=== PATIENT | female | born 2000 | race Caucasian/White ===

== ENCOUNTER 2023-07-10 09:33 | Outpatient (CLI) | payer OTHER, SELFPAY ==
--- NOTE | ~2023-07-10 | US_ITS ---
US thyroid INDICATION: Hypothyroidism. TECHNIQUE: Real-time sonographic images of the thyroid gland were obtained. COMPARISON: No prior studies for comparison. FINDINGS: The right thyroid lobe measures 5 x 1.7 x 1.7 cm. The left thyroid lobe measures 4.2 x 1.7 x 1.3 cm. There is diffusely heterogeneous echotexture and echogenicity throughout the thyroid gland . No discrete nodules identified. Normal vascular flow is present. IMPRESSION: 1. Enlarged heterogeneous thyroid gland without discrete mass, consistent with multinodular goiter. Reviewed, dictated and finalized at location A. OR LITIGATION PAR[place]GAL
== END 2023-07-10 09:34 | disposition home or self-care (01) ==
LOC: ANHIMG 09:34
PROVIDERS: Visit Provider Nurse Practitioner Family
DX: E03.9 Hypothyroidism, unspecified (principal); R76.8 Other specified abnormal immunological findings in serum
CPT/HCPCS: 76536

== ENCOUNTER 2024-02-11 00:46 | Emergency (ER) | payer OTHER, SELFPAY ==
--- NOTE | ~2024-02-11 | XR_ITS ---
EXAMINATION: XR chest 1V portable DATE: 02/11/2024 01:03 INDICATION: Chest tightness TECHNIQUE: frontal view of the chest was obtained. COMPARISON: None FINDINGS: The lungs are clear with no focal airspace opacities, pulmonary edema, pleural effusion or pneumothor ax. The cardiomediastinal silhouette is normal. Visualized bones and soft tissues are unremarkable. IMPRESSION: 1. Normal chest radiograph Reviewed, dictated and finalized at location A. IMPRESSION: 1. Normal chest radiograph
[2024-02-11 00:51] VITALS: BP 146/87; PULSE 98; RESP 15; TEMP 36.7; O2SAT 98
--- NOTE | 2024-02-11 00:51 | ECG_ITS ---
Test Date: 2024-02-11 00:58:59 Measurements Intervals [place] Rate: 76 P: 59 NC: 175 QRS: 24 QRSD: 71 T: 22 QT: 379 QTc: 426 Interpretive Statements SINUS RHYTHM DELAYED PRECORDIAL R/S TRANSITION BASELINE ARTIFACT- I, II, III, AVR, AVL, AVF BORDERLINE ECG No previous ECG available for comparison Electronically Signed On 02-11-2024 06:49:47 CDT by Kenneth Cage D.O.
--- NOTE | 2024-02-11 00:56 | ED.GENADULT ---
HPI - General Adult General Chief complaint: Unspecified Stated complaint: chest tightness/shaky feeling Time Seen by Provider: 02/11/24 00:50 Source: patient Mode of arrival: ambulatory Limitations: no limitations History of Present Illness HPI narrative: This is a 23-year-old female who presents to the ED with chief complaint of chest tightness, dizziness and shakiness beginning a work is see. 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 States that while moving boxes tonight she started to have the chest tightness. Reports also feeling shaky so she was given a soda by her print shop manager in case it was low blood sugar. She has history of hypothyroidism and takes levothyroxine but no recent changes to her medications. Also taking Adderall for ADHD but has not had any issues with this previously. Denies fevers, chills, cough, congestion, leg swelling, palpitations, shortness of breath, recent illness, history of blood clot, recent immobilization, estrogen use. Related Data Allergies Allergy/AdvReac Type Severity Reaction Status Date / Time No Known Allergies Allergy Verified 02/11/24 00:47 Review of Systems Review of Systems: All systems as dictated in HPI Exam Narrative: GENERAL: Well-appearing, well-nourished, and in no acute distress. HEAD: Normocephalic, atraumatic. EYES: PERRLA and EOMI. ENT: Nares clear, no rhinorrhea or epistaxis. Mucous membranes moist. Oropharynx without tonsillar hypertrophy exudate or other lesions. NECK: Supple. No adenopathy or masses. CHEST: No respiratory distress. Clear to auscultation. No wheezes rales or rhonchi HEART: Regular rate and rhythm. No murmur heard. Normal peripheral pulses. ABDOMEN: Soft, nontender, nondistended, normal active bowel sounds. MSK: Normal range of motion. No edema. SKIN: Warm, dry, no rash. NEURO: Alert and oriented x4. No focal deficits. PSYCH: Normal mood and affect. Course Vital Signs Vital signs: Vital Signs Temperature 98.1 F 02/11/24 00:51 Pulse Rate 98 02/11/24 00:51 Respiratory Rate 15 02/11/24 00:51 Blood Pressure 146/87 H 02/11/24 00:51 Pulse Oximetry 98 02/11/24 00:51 Oxygen Delivery Room Air 02/11/24 00:51 Temperature 98.1 F 02/11/24 00:51 Pulse Rate 83 02/11/24 01:01 Respiratory Rate 18 02/11/24 01:01 Blood Pressure 140/79 02/11/24 01:01 Pulse Oximetry 97 02/11/24 01:01 Oxygen Delivery Room Air 02/11/24 00:51 Medical Decision Making MDM Narrative Medical decision making narrative: This is a 23-year-old female who presents to the ED with chief complaint of intermittent chest pain. Vitals are normal. Exam is benign. ECG shows normal sinus rhythm with no acute ischemic findings. Chest x-ray is normal. Lab work is grossly unremarkable including a negative troponin. PERC rule negative. Presentation consistent with musculoskeletal strain verses atypical chest pain. Pt will be discharged in stable condition. Return precautions given and supportive measures discussed. Pt is understanding and agreeable with plan for discharge and follow-up with PCP. Vital Signs Vital Signs: Vital Signs Temperature 98.1 F 02/11/24 00:51 Pulse Rate 98 02/11/24 00:51 Respiratory Rate 15 02/11/24 00:51 Blood Pressure 146/87 H 02/11/24 00:51 Pulse Oximetry 98 02/11/24 00:51 Oxygen Delivery Room Air 02/11/24 00:51 Temperature 98.1 F 02/11/24 00:51 Pulse Rate 83 02/11/24 01:01 Respiratory Rate 18 02/11/24 01:01 Blood Pressure 140/79 02/11/24 01:01 Pulse Oximetry 97 02/11/24 01:01 Oxygen Delivery Room Air 02/11/24 00:51 Lab Data 02/11/24 01:04 02/11/24 01:04 Labs: Lab Results 02/11/24 Range/Units 01:04 WBC 9.0 (4.5-10.0) K/mm3 RBC 4.62 (4.2-5.4) M/mm3 Hgb 13.6 (12.0-15.0) g/dL Hct 41.5 (37.0-47.0) % MCV 89.8 (80-100) fl MCH 29.4 (26-34) pg MCHC 32.8 (32-36) g/dl RDW
[2024-02-11 01:01] VITALS: BP 140/79; PULSE 83; RESP 18; O2SAT 97
[2024-02-11 05:27] LABS: Prothrombin Time 14.1 Seconds (11.1-14.7)
[2024-02-11 05:35] LABS: Alanine Aminotransferase 19 U/L (6-35); Albumin Level 4.6 g/dL (3.5-5.1); Alkaline Phosphatase 114 U/L (38-126); Anion Gap 13 mmol/L (4-12); Aspartate Amino Transferase 26 U/L (14-36); Bilirubin,Total 0.3 mg/dL (0.2-1.3); Blood Urea Nitrogen 14 mg/dL (7-17); Calcium 9.5 mg/dL (8.4-10.2); Carbon Dioxide 21 mmol/L (22-30); Chloride 105 mmol/L (98-107); Estimated CRCL calculation 111 ml/min; Estimated Glomerular Filt Rate > 60; Glucose 133 mg/dL (65-110); Lipase 62 U/L (23-300); Potassium 3.6 mmol/L (3.4-5.0); Sodium 139 mmol/L (137-145); Troponin I < 0.012 ng/mL (0.000-0.034)
[2024-02-11 07:33] LABS: Basophils Absolute Auto 0.1 K/mm3 (0.0-0.1); Basophils Percent Auto 0.7 % (0.2-1.2); Eosinophils Absolute Auto 0.1 K/mm3 (0-0.3); Eosinophils Percent Auto 0.9 % (0-4.4); Hematocrit 41.5 % (37.0-47.0); Hemoglobin 13.6 g/dL (12.0-15.0); Immature Granulocyte Absolute 0.07 K/mm3 (0.00-0.031); Immature Granulocyte Percent A 0.8 % (0-0.5); Lymphocytes Absolute Auto 1.86 K/mm3 (0.9-3.2); Lymphocytes Percent Auto 20.7 % (18.3-44.2); Mean Corpuscular HGB Conc 32.8 g/dl (32-36); Mean Corpuscular Hemoglobin 29.4 pg (26-34); Mean Corpuscular Volume 89.8 fl (80-100); Mean Platelet Volume 10.2 fl (7.4-10.4); Monocytes Absolute Auto 0.6 K/mm3 (0.1-0.6); Monocytes Percent Auto 6.6 % (2.6-8.5); Neutrophils Absolute Auto 6.3 K/mm3 (1.3-6.7); Neutrophils Percent Auto 70.3 % (45.5-73.1); Platelet Count Result 263 k/mm3 (150-375); Red Blood Count 4.62 M/mm3 (4.2-5.4); Red Cell Distribution Width 13.7 % (11.5-14.5)
== END 2024-02-11 02:45 | disposition home or self-care (01) ==
PROVIDERS: Emergency Provider Physician Assistant; PCP Nurse Practitioner Family
DX: R07.89 Other chest pain (principal); F90.9 Attention-deficit hyperactivity disorder, unspecified type
CPT/HCPCS: 36415; 71045; 80053; 83690; 84484; 85025; 85610; 85730; 93005; 99284

== ENCOUNTER 2024-11-07 11:11 | Emergency (ER) | payer OTHER, SELFPAY ==
--- NOTE | ~2024-11-07 | XR_ITS ---
EXAMINATION: XR foot RT min 3V, XR ankle RT min 3V DATE: 11/07/2024 14:07 INDICATION: Pain at the fifth metatarsal the right foot and at the lateral malleolus of the right ank le TECHNIQUE: 1. Anteroposterior, mortise, additional oblique and lateral view of the right ankle were obtained. 2. Dorsoplantar, two oblique and lateral views of the right foot were obtained. COMPARISON: None. FINDINGS: Alignment of the foot and ankle is normal. There is mild lateral angulation of the distal diaphysis o f the right fifth metatarsal with intact smooth cortical margins which could be either developmental or sequela of an old healed fracture. No acute fracture identified. Minimal polyarticular osteoarthri tis at the first metatarsophalangeal and a few tarsometatarsal and interphalangeal joints. Small bone island at the anterior process of the calcaneus. No ankle joint effusion. The soft tissues are unrem arkable. IMPRESSION: 1. No acute osseous abnormality at the right foot or ankle. Reviewed, dictated and finalized at location A. IMPRESSION: 1. No acute osseous abnormality at the right foot or ankle.
[2024-11-07 11:26] VITALS: BP 142/89; PULSE 106; RESP 14; O2SAT 100
[2024-11-07 13:20] VITALS: BP 151/96; PULSE 90; RESP 18; TEMP 36.4; O2SAT 100
--- NOTE | 2024-11-07 13:41 | ED_ITS ---
HPI - Extremity Problem General Chief complaint: Extremity Problem,Nontraumatic Stated complaint: right foot pain Time Seen by Provider: 11/07/24 15:51 Focused HPI: 23 year old female presenting with right 5th MTP pain for the last two months with the pain intensifying today. She denies any history of trauma. She reports taking ibuprofen and Tylenol but it has not helped with the pain. GENERAL: Well-appearing, well-nourished, and in no acute distress. HEAD: Normocephalic, atraumatic. CHEST: Clear to auscultation. ?No respiratory distress. EXT: RLE: Tenderness mildly to the right lateral malleolus overlying warmth, erythema, deformity. Point tenderness over the right 5th metatarsal with minimal overlying erythema, full range of motion of all toes. DP pulse 2 +. Sensation intact. HEART: Regular rate and rhythm.? NEURO: ?Alert and oriented x3. Patient screened in triage and initial orders placed.? ?Additional care and di sposition to be based upon?diagnostic testing and treatment. History of Present Illness HPI Narrative: Agree with the above triage note. Related Data Allergies Allergy/AdvReac Type Severity Reaction Status Date / Time No Known Allergies Allergy Verified 02/11/24 00:47 Review of Systems Review of Systems: All systems reviewed & are unremarkable except as noted in HPI and below Exam Narrative: GENERAL: Well-appearing, well-nourished, and in no acute distress. HEAD: Normocephalic, atraumatic. EYES: EOMI. ENT: Nares clear, no rhinorrhea or epistaxis. Mucous membranes moist. NECK: Supple. CHEST: Clear to auscultation. No respiratory distress. HEART: Regular rate and rhythm. No murmur heard. Normal peripheral pulses. EXTREMITIES: RLE: Tenderness mildly to the right lateral malleolus overlying warmth, erythema, deformity. Point tenderness over the right 5th metatarsal with minimal overlying erythema, full range of motion of all toes. DP pulse 2 +. Sensation intact. SKIN: Warm, dry, no rash. NEURO: No focal deficits. Alert and oriented x3 Course Vital Signs Vital signs: Vital Signs Pulse Rate 106 H 11/07/24 11:26 Respiratory Rate 14 11/07/24 11:26 Blood Pressure 142/89 H 11/07/24 11:26 Pulse Oximetry 100 11/07/24 11:26 Oxygen Delivery Room Air 11/07/24 11:26 Temperature 97.5 F L 11/07/24 13:20 Pulse Rate 78 11/07/24 14:24 Respiratory Rate 20 11/07/24 14:24 Blood Pressure 127/73 11/07/24 14:24 Pulse Oximetry 99 11/07/24 14:24 Oxygen Delivery Room Air 11/07/24 11:26 MDM - Extremity (Nontraumatic) MDM Narrative Medical decision making narrative: 23-year-old female presents emergency department for atraumatic right foot pain for the past 2 months. See HPI for further history. Triage vitals with hypertension and mild tachycardia 106 which has since resolved. Patient is afebrile nontoxic appearing. Exam is significant for point tenderness over the right 5th MTP. Also having some tenderness over the right lateral malleolus. No obvious deformity. She is neurovascularly intact. X-ray of the right foot and ankle show no acute findings. Patient updated on results. Will provide a prescription for naproxen. She is placed in a postop shoe and provided crutches for comfort and given referral for Podiatry. Discussed return precautions. She is agreeable with the plan verbalized understanding. Discharged in stable condition Discharge Plan Discharge Clinical Impression: Foot pain, right Patient Disposition: Home Condition: Stable Instructions: Antibiotic Form, Metatarsalgia (DC) Additional Instructions: Please follow-up closely with a plywood layup line core layer. Take the anti-inflammatories and Tylenol as directed. Rest, ice, elevate and keep your foot compress. War properly fitting shoes. Return to the emergency department if you develop any new or worsening symptoms. Patient Language: Greek Prescriptions: New naproxen 500 mg tablet 500 mg PO BID PRN (Reason: pain) Qty: 20 0RF Follow-up/Referrals: Homero Lyles Jr., DPM [Physician] - Branch,Abbi Jenkins APRN [Primary Care Provider] -
[2024-11-07 14:24] VITALS: BP 127/73; PULSE 78; RESP 20; O2SAT 99
== END 2024-11-07 16:19 | disposition home or self-care (01) ==
PROVIDERS: Emergency Provider Physician Assistant; PCP Nurse Practitioner Family
DX: M79.671 Pain in right foot (principal)
CPT/HCPCS: 73610; 73630; 99283